=== PATIENT | male | born 1950 | race Caucasian/White ===

== ENCOUNTER 2016-07-30 13:21 | Emergency (ER) | payer MEDICARE, OTHER ==
--- NOTE | 2016-07-30 14:02 | ERPHSYRPT ---
- History of Present Illness Time Seen by Provider: 07/30/16 13:47 Source: patient Exam Limitations: no limitations Patient Subjective Stated Complaint: pt states he began having numbness to left arm on 07/27/16. states he started on lisinopril 10mg on 07/28/16 from 's office. pt denies any pain at this time. Triage Nursing Assessment: pt pink, warm, dry. hand beef ribber equal and strong. radial pulses strong. pt ambulated into er without difficulty. Physician History: The patient is a 66-year-old male with his complaining of left upper arm tingling for several weeks. 3 days ago the patient went for brisk walk with his and was concerned because he was out of breath and has chest discomfort during the walk. The chest discomfort is no longer present that the patient talked to his son who convinced him to come to the emergency room for a workup. His left upper arm is an intermittent pain that sometimes is positional with his arm. His past medical history is significant for high blood pressure, anxiety, and GERD. He's had numerous musculoskeletal surgeries. He has no past medical history of heart problems. He did smoke for many years. Timing/Duration: week(s) (several), intermittent Severity: mild Character of Deficits: LLE (tingling) Deficits: no difficulties Baseline/Normal Cognition: alert oriented x 3 Current Cognition: alert oriented x 3 Baseline Gait: walks w/o assistance Associated Symptoms: denies symptoms Allergies/Adverse Reactions: iodine Allergy (Mild, Verified 07/30/16 13:31) Rash itchiness Home Medications: Lisinopril 10 mg [Zestril 10 MG] 10 mg PO DAILY 07/30/16 [History] Pantoprazole Sodium [Protonix] 40 mg PO DAILY 07/30/16 [History] Hx Tetanus, Diphtheria Vaccination/Date Given: Yes (unknown) Hx Influenza Vaccination/Date Given: Yes Hx Pneumococcal Vaccination/Date Given: No Immunizations Up to Date: Yes - Review of Systems Constitutional: No Fever, No Chills Eyes: No Symptoms Ears, Nose, & Throat: No Symptoms Respiratory: No Cough, No Dyspnea Cardiac: No Chest Pain, No Edema, No Syncope Abdominal/Gastrointestinal: No Abdominal Pain, No Nausea, No Vomiting, No Diarrhea Genitourinary Symptoms: No Dysuria Musculoskeletal: No Back Pain, No Neck Pain Skin: No Rash Neurological: Other (tingling) Psychological: No Symptoms Endocrine: No Symptoms Hematologic/Lymphatic: No Symptoms Immunological/Allergic: No Symptoms All Other Systems: Reviewed and Negative - Past Medical History Pertinent Past Medical History: Yes Neurological History: No Pertinent History ENT History: Cataracts Cardiac History: Hypertension Respiratory History: No Pertinent History Endocrine Medical History: No Pertinent History Musculoskeletal History: No Pertinent History GI Medical History: GERD History: Other Psycho-Social History: Anxiety Other Medical History: viral encephalitis 1992 - Past Surgical History Past Surgical History: Yes Neuro Surgical History: No Pertinent History Cardiac: No Pertinent History Respiratory: No Pertinent History Musculoskeletal: Joint Replacement, Orthopedic Surgery Other Surgical History: kari knee replacement -cataract removed and lens replacement - kidney stones, carpal tunnel kari. - Social History Smoking Status: Former smoker Exposure to second hand smoke: No Drug Use: none Patient Lives Alone: No - Nursing Vital Signs Nursing Vital Signs: Initial Vital Signs Temperature 97.9 F Temperature Source Oral Pulse Rate 69 Respiratory Rate 18 Blood Pressure [] 182/92 Pain Intensity 0 - Kyle Coma Scale Best Eye Response ([place]): (4) open spontaneously Best Verbal Response ([place]): (5) oriented Best Motor Response ([place]): (6) obeys commands [place] Total: 15 - Physical Exam General Appearance: no apparent distress, alert Eye Exam: bilateral eye: normal inspection Ears, Nose, Throat Exam: normal ENT inspection, moist mucous membranes Neck Exam: normal inspection, non-tender, supple Respiratory: normal breath sounds, lungs clear, airway intact, No respiratory distress Cardiovascular: regular rate/rhythm, No edema Gastrointestinal: soft, No tenderness, No distention Rectal Exam: not done Back Exam: normal inspection Extremity Exam: normal inspection, No pedal edema Mental Status: 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 Care 07/30/16 13:33 Active EKG-ER Only STAT Care 07/30/16 13:32 Active CERVICAL SPINE MINIMUM 4 VIEWS Stat Exams 07/30/16 14:10 Taken CHEST 2 VIEWS (PA AND LAT) Stat Exams 07/30/16 14:09 Taken CBC W DIFF Stat Lab 07/30/16 14:00 Completed CMP Stat Lab 07/30/16 14:00 Completed TROPONIN Stat Lab 07/30/16 14:00 Completed Lab/Rad Data: Laboratory Result Diagrams 07/30/16 14:00 07/30/16 14:00 Laboratory Results 07/30/16 07/30/16 Range/Units 14:00 14:00 WBC 7.2 (4.0-10.5) K/mm3 RBC 5.78 H (4.1-5.6) M/mm3 Hgb 16.4 (12.5-18.0) gm/dl Hct 48.1 (42-50) % MCV 83.2 (78-100) fl MCH 28.3 (26-32) pg MCHC 34.1 (32-36) g/dl RDW 13.6 (11.5-14.0) % Plt Count 264 (150-450) K/mm3 MPV 10.4 H (6-9.5) fl Gran % 56.5 (36.0-66.0) % Lymphocytes % 34.9 (24.0-44.0) % Monocytes % 7.3 (0.0-12.0) % Eosinophils % 1.0 (0.00-5.0) % Basophils % 0.3 (0.0-0.4) % Basophils # 0.02 (0-0.4) Sodium 141 (136-145) mEq/L Potassium 4.0 (3.5-5.1) mEq/L Chloride 105 (98-107) mEq/L Carbon Dioxide 24.3 (21-32) mEq/L Anion Gap 15.4 H (5-15) MEQ/L BUN 17 (9-20) mg/dL Creatinine 1.24 (0.55-1.30) mg/dl Estimated GFR > 60 ML/MIN Glucose 98 (70-110) MG/DL Calcium 9.1 (8.5-10.1) mg/dL Total Bilirubin 0.4 (0.2-1.0) mg/dL AST 25 (15-37) U/L ALT 41 (12-78) U/L Alkaline Phosphatase 87 (46-116) U/L Troponin I < 0.017 (0.000-0.056) ng/ml Serum Total Protein 8.2 (6.4-8.2) gm/dL Albumin 4.0 (3.4-5.0) g/dL - Progress Progress: unchanged Counseled pt/family regarding: lab results, diagnosis, need for follow-up, rad results - Departure Time of Disposition: 14:57 Departure Disposition: Home 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 Follow up on Sunday.
[2016-07-30 14:24] LABS: BASOPHIL % 0.3 % (0.0-0.4); Granulocytes % 56.5 % (36.0-66.0); Lymphocytes % 34.9 % (24.0-44.0); Mean Cell Volume 83.2 fl (78-100); Mean Platelet Volume 10.4 fl (6-9.5); Monocytes % 7.3 % (0.0-12.0); Platelet Count 264 K/mm3 (150-450); Red Blood Count 5.78 M/mm3 (4.1-5.6); Red Cell Distribution Width 13.6 % (11.5-14.0); White Blood Count 7.2 K/mm3 (4.0-10.5)
[2016-07-30 14:27] LABS: Mean Corpuscular Hemoglobin 28.3 pg (26-32)
[2016-07-30 14:35] LABS: ALKALINE PHOSPHATASE 87 U/L (46-116); ANION GAP 15.4 MEQ/L (5-15); BILIRUBIN,TOTAL 0.4 mg/dL (0.2-1.0); BLOOD UREA NITROGEN 17 mg/dL (9-20); CHLORIDE 105 mEq/L (98-107); Carbon Dioxide 24.3 mEq/L (21-32); Glucose 98 MG/DL (70-110); SGOT/AST 25 U/L (15-37); SGPT/ALT 41 U/L (12-78); SODIUM 141 mEq/L (136-145); TROPONIN < 0.017 ng/ml (0.000-0.056); Total Protein 8.2 gm/dL (6.4-8.2)
[2016-07-30 15:05] VITALS: O2SAT 94
[2016-07-30 15:25] VITALS: BP 139/83; PULSE 95
--- NOTE | 2016-07-30 18:02 | XRAY ---
Indication: Chest pain and left arm tingling. Comparison: December 21, 2013. PA/lateral chest again hyperinflated with right mid-upper lung peripheral calcified granuloma. No focal infiltrate, consolidation, or large effusion. Heart and mediastinal structures stable and within normal limits. Bony thorax intact. Impression: Stable nonacute chest with chronic features.
--- NOTE | 2016-07-30 18:02 | XRAY ---
Indication: Left arm tingling. Comparison: None 5 views of the cervical spine demonstrates normal alignment with C4-C6 limbus vertebrae. Disc spaces maintained. C6-T1 degenerative facet arthropathy. No acute fracture, subluxation, or soft tissue abnormalities. Foramina bilaterally patent. Impression: Degenerative changes in a otherwise negative cervical spine.
== END 2016-07-30 15:25 | disposition home or self-care (01) ==
LOC: ED 13:21
DX: G62.9 Polyneuropathy, unspecified (principal); R20.0 Anesthesia of skin; R07.89 Other chest pain
CPT/HCPCS: 36000; 36415; 71020; 72050; 80053; 84484; 85025; 93005; 93041; 99283; 99284

== ENCOUNTER 2017-06-05 14:28 | Emergency (ER) | payer MEDICARE, OTHER ==
[2017-06-05 14:49] VITALS: BP 149/86; PULSE 75; O2SAT 97
[2017-06-05] MEDS ORDERED: TORAdol 30 mg Injection IM ONE (14:49)
[2017-06-05] MEDS ORDERED: TORAdol 30 mg Injection ONE (14:55)
--- NOTE | 2017-06-05 14:55 | ERPHSYRPT ---
- History of Present Illness Time Seen by Provider: 06/05/17 14:52 Source: patient Exam Limitations: no limitations Patient Subjective Stated Complaint: was laying on floor board of car doing some work and felt something pop around posterior lower ribs. now having pain with movement in ribs. Triage Nursing Assessment: ambulated to room holding right flank area. skin w/d , color normal, resp easy. patient yelling out and holding right side when he moves. area very tender to touch. no bruising noted. Physician History: 67-year-old white male arrives with complaint of pain in his right posterior low ribs since just prior to arrival. According to the patient he was working on a car on his side he felt something pop now he has pain in the right lower posterior ribs worse with moving and palpation. Patient has no shortness of breath. Past medical history includes cataracts, high blood pressure, diabetes, GERD, anxiety, viral encephalitis. Past surgical history includes joint replacement, orthopedic surgery, bilateral knee replacement, cataracts removed, lens replacement, kidney stones, bilateral carpal tunnel. Timing/Duration: today (just prior to arrival) Severity: moderate Modifying Factors: Improves With: movement Associated Symptoms: No nausea, No abdominal pain, No shortness of breath, No heartburn, No diaphoresis, No cough, No chills, No chest pain, No loss of appetite, No malaise, No rash, No syncope, No seizure, No weakness Allergies/Adverse Reactions: iodine Allergy (Mild, Verified 06/05/17 14:42) Rash itchiness Home Medications: Sertraline HCl 50 mg [Zoloft 50 mg Tablet] 50 mg PO DAILY 06/05/17 [History] Tamsulosin HCl 0.4 mg [Flomax 0.4 MG] 0.4 mg PO DAILY 06/05/17 [History] Hx Tetanus, Diphtheria Vaccination/Date Given: No (unknown) Hx Influenza Vaccination/Date Given: Yes Hx Pneumococcal Vaccination/Date Given: Yes - Review of Systems Constitutional: No Fever, No Chills Eyes: No Symptoms Ears, Nose, & Throat: No Symptoms Respiratory: No Cough, No Dyspnea Cardiac: No Chest Pain, No Edema, No Syncope Abdominal/Gastrointestinal: No Abdominal Pain, No Nausea, No Vomiting, No Diarrhea Genitourinary Symptoms: No Dysuria Musculoskeletal: Other (pain right posterior lower ribs with movement and palpation) Skin: No Rash Neurological: No Dizziness, No Focal Weakness, No Sensory Changes Psychological: No Symptoms Endocrine: No Symptoms All Other Systems: Reviewed and Negative - Past Medical History Pertinent Past Medical History: Yes Neurological History: No Pertinent History ENT History: Cataracts Cardiac History: Hypertension Respiratory History: No Pertinent History Endocrine Medical History: No Pertinent History Musculoskeletal History: No Pertinent History GI Medical History: GERD History: Other Psycho-Social History: Anxiety Other Medical History: viral encephalitis 1992 - Past Surgical History Past Surgical History: Yes Neuro Surgical History: No Pertinent History Cardiac: No Pertinent History Respiratory: No Pertinent History Musculoskeletal: Joint Replacement, Orthopedic Surgery Other Surgical History: kari knee replacement -cataract removed and lens replacement - kidney stones, carpal tunnel kari. - Social History Smoking Status: Former smoker Exposure to second hand smoke: No Drug Use: none Patient Lives Alone: No - Nursing Vital Signs Nursing Vital Signs: Initial Vital Signs Temperature 97.2 F 06/05/17 14:38 Pulse Rate 75 06/05/17 14:38 Respiratory Rate 19 06/05/17 14:38 Blood Pressure 149/86 06/05/17 14:38 O2 Sat by Pulse Oximetry 97 06/05/17 14:38 Pain Scale Pain Intensity 10 - Physical Exam General Appearance: moderate distress Eye Exam: PERRL/EOMI, eyes nml inspection Ears, Nose, Throat Exam: normal ENT inspection, TMs normal, pharynx normal, moist mucous membranes Neck Exam: normal inspection, non-tender, supple, full range of motion Respiratory Exam: normal breath sounds, lungs clear, No respiratory distress Cardiovascular Exam: regular rate/rhythm, normal heart sounds, normal peripheral pulses Gastrointestinal/Abdomen Exam: soft, normal bowel sounds, No tenderness, No mass Back Exam: other (pain right posterior lower ribs with palpation and movement) Extremity Exam: normal inspection, normal range of motion, pelvis stable Neurologic Exam: alert, oriented x 3, cooperative, normal mood/affect, nml cerebellar function, nml station & gait, sensation nml, No motor deficits Skin Exam: normal color, warm, dry, No rash Lymphatic Exam: No adenopathy SpO2 Interpretation: normal (97%) SpO2: 97 Oxygen Delivery: Room Air - Course Nursing assessment & vital signs reviewed: Yes - Radiology Exams Chest X-ray Interpretation: Discussed w/ radiologist (stable, non-acute chest with chronic features) Right Ribs X-ray Interpretation: Discussed w/ radiologist (X-ray right ribs no bony, articular, or soft tissue abnormalities) Ordered Tests: Active Orders 24 hr Category Date Time Status CHEST 1 VIEW (PORTABLE) Stat Exams 06/05/17 14:51 Completed RIBS UNILATERAL Stat Exams 06/05/17 15:10 Completed Medication Summary Discontinued Medications Generic Name Dose Route Start Last Admin Trade Name Misti PRN Reason Stop Dose Admin Ketorolac Tromethamine 60 mg 06/05/17 14:49 06/05/17 15:00 Toradol 30 Mg Injection IM 06/05/17 14:50 60 mg STAT ONE Administration Ketorolac Tromethamine Confirm 06/05/17 14:55 Toradol 30 Mg Injection Administered 06/05/17 14:56 Dose 60 mg .ROUTE .STK-MED ONE - Progress Progress: improved Progress Note: 06/05/17 15:35 67-year-old white male arrives with complaint of pain overlying the right posterior lower ribs which began when he was laying on his side working on a car he states he thought he felt a pop. He is point tender over the right lower ribs lateral to the vertebral column with palpation and movement. X-ray of the right ribs no fractures, no bony articular or soft tissue abnormalities. X-ray of the chest stable nonacute chest with chronic feature bony thorax is intact. Patient is better but not pain-free after Toradol 60 mg IM. I have offered patient CT he does not want this at this point patient appears to be stable and is definitely point tender over the lower ribs. I offered patient [place] he states he has this at home. I offered to write a prescription for nonsteroidals patient states he will get these at home. Will discharge patient. - Departure Time of Disposition: 15:37 Departure Disposition: Home Clinical Impression: Rib pain on right side, Musculoskeletal strain Back pain Qualifiers: Back pain location: thoracic back pain Chronicity: acute Back pain laterality: right Qualified Code(s): M54.6 - Pain in thoracic spine Condition: Fair Critical Care Time: No Additional Instructions: Return home. Cold packs to area 24-48 hours. [place] as prescribed by your family doctor. Advil 2-3 tablets orally every 6 hours with food as needed for pain for up to 5 days. Follow-up with your family doctor if symptoms are worse, no better in 48 hours, or persist longer than one week. Return for acute distress or for severe symptoms. Avoid repetitive or strenuous bending twisting lifting pushing or pulling.
--- NOTE | 2017-06-05 15:15 | XRAY ---
Indication: Right lower rib pain following injury. Comparison: July 30, 2016. Portable chest again hyperinflated and clear with incidental right upper lung calcified granuloma. Heart is not enlarged. Bony thorax intact. Impression: Stable nonacute chest with chronic feature.
--- NOTE | 2017-06-05 15:17 | XRAY ---
Indication: Right lower rib pain following injury. Comparison: None 2 views of the right ribs obtained. No bony, articular, or soft tissue abnormalities.
== END 2017-06-05 16:02 | disposition home or self-care (01) ==
LOC: ED 14:28
DX: R07.81 Pleurodynia (principal); M54.6 Pain in thoracic spine; I10 Essential (primary) hypertension; K21.9 Gastro-esophageal reflux disease without esophagitis; F41.9 Anxiety disorder, unspecified; E11.9 Type 2 diabetes mellitus without complications; S29.011A Strain of muscle and tendon of front wall of thorax, initial encounter
CPT/HCPCS: 71045; 71100; 96372; 99284; J1885

== ENCOUNTER 2022-08-22 08:56 | Day surgery (SDC) | payer MEDICARE, OTHER ==
[2022-08-22] MEDS ORDERED: Epinephrine Preservative Free 1 MG/ML IJ ONE (08:57)
[2022-08-22] MEDS ORDERED: ACETAZOLAMIDE 250 MG TABLET PO ONE (09:00)
[2022-08-22] MEDS ORDERED: BETADINE 5% OPHTHALMIC 30 ML OP ONE (09:00)
[2022-08-22] MEDS ORDERED: cefUROXime sodium 0.005 GM in Sodium Chloride Flush 30 ML*** 0.5 ML IJ ONE (09:00)
[2022-08-22] MEDS ORDERED: Lactated Ringers 1,000 ML IV SCH (09:00)
[2022-08-22] MEDS ORDERED: Ak-Dilate OPHTHALMIC*** 1.065 ML, Cyclogyl 1% OPHTH SOL 1.065 ML, GATIFLOXACIN 0.5% OPH... OP ONE ×4 (09:00)
[2022-08-22] MEDS ORDERED: NON-FORMULARY ITEM OP ONE (09:00)
[2022-08-22] MEDS ORDERED: TETRACAINE 0.5% STERI-UNIT SOL OP ONE ×2 (09:00)
[2022-08-22] MEDS ORDERED: Zofran 4 MG/2 ML VIAL IV PRN (09:00)
[2022-08-22] MEDS ORDERED: Lactated Ringers 1,000 ML IV ONE (09:38)
[2022-08-22] MEDS ORDERED: DIPRIVAN 200 MG/20 ML IV ONE (10:27)
[2022-08-22] MEDS ORDERED: Xylocaine-Mpf 2% 5 Ml Vial ONE (10:27)
[2022-08-22 11:22] VITALS: BP 132/79; PULSE 58; O2SAT 93
== END 2022-08-22 11:28 | disposition home or self-care (01) ==
LOC: SDC 08:56
PROVIDERS: ATTEND Ophthalmology
DX: H25.812 Combined forms of age-related cataract, left eye (principal)
CPT/HCPCS: 99100; C1780; J0171; J2704; A9270-GY

== ENCOUNTER 2024-09-18 22:45 | Observation (INO) | payer MEDICARE, OTHER ==
[2024-09-18] MEDS ORDERED: DUONEB 0.5-3 MG/3 ml Neb IH ONE (23:11)
[2024-09-18] MEDS: DUONEB 0.5-3 MG/3 ml Neb IH ONE (23:20)
[2024-09-18 23:22] LABS: Absolute Neutrophil Ct (ANC) 4.88 x10^3/uL (1.78-5.38); BASOPHIL % 0.4 % (0.2-1.2); Basophil (Absolute #) 0.03 x10^3/uL (0.01-0.08); Eosinophil % 1.9 % (0.8-7.0); Eosinophil (Absolute #) 0.15 x10^3/uL (0.04-0.54); Hematocrit 44.1 % (40.1-51.0); Hemoglobin 14.9 g/dL (13.7-17.5); IMMATURE GRAN # 0.03 x10^3u/L (0.001-0.031); IMMATURE GRAN % 0.4 % (0.001-0.429); Lymphocyte (Absolute #) 2.12 x10^3/uL (1.32-3.57); Lymphocytes % 26.8 % (21.8-53.1); Mean Cell Volume 84.8 fL (79.0-92.2); Mean Corpuscular Hemoglobin 28.7 pg (25.7-32.2); Mean Corpuscular Hgb Concent. 33.8 g/dL (32.3-36.5); Mean Platelet Volume 9.6 fL (9.4-12.4); Monocyte (Absolute #) 0.71 x10^3/uL (0.30-0.82); Neutrophil % 61.5 % (34.0-67.9); Platelet Count 236 x10^3/uL (163-337); Red Cell Distribution Width 12.8 % (11.6-14.4); White Blood Count 7.9 x10^3/uL (4.23-9.07)
[2024-09-18] MEDS ORDERED: MORPHINE SULFATE 4 MG INJ ONE (23:28)
[2024-09-18] MEDS ORDERED: Zofran 4 MG/2 ML VIAL ONE (23:28)
[2024-09-18] MEDS: Zofran 4 MG/2 ML VIAL IV ONE (23:30)
[2024-09-18] MEDS: MORPHINE SULFATE 4 MG INJ IV ONE (23:30)
[2024-09-18 23:43] LABS: ALBUMIN 4.3 g/dL (3.5-5.0); BILIRUBIN,TOTAL 0.7 mg/dL (0.2-1.3); Calcium 8.6 mg/dL (8.4-10.2); Creatinine 1 0.92 mg/dL (0.66-1.25); EST GLOMERULAR FILTRATION RATE 86.2 ML/MIN; MAGNESIUM 2.2 mg/dL (1.6-2.3); Potassium 4.5 mmol/L (3.5-5.1)
[2024-09-18 23:47] LABS: NT PRO BNPII 224 pg/mL (<300); TROPONIN < 0.012 ng/mL (0.000-0.033)
--- NOTE | 2024-09-19 00:46 | XRAY ---
CLINICAL HISTORY: sob/cp COMPARISON: Compared to the prior chest x-ray dated 03/05/2020. TECHNIQUE: X-ray of the chest was performed in AP (anteroposterior) view. FINDINGS: Lungs: Right middle lung zone nodule. No pulmonary consolidations or collapse. No evidence of pleural effusion or thickenings. Heart: Normal cardiac size and shape. No abnormal mediastinal lesions. Bone: Normal bony framework with no significant chest abnormalities. Bilateral shoulder bony hypertrophy. Soft tissue: No abnormal soft tissue masses. IMPRESSION: - Stable right upper lung lobe nodule. - Prior chest x-ray shows mild hyperinflation. - No acute pulmonary abnormalities. Electronically Signed by: Rebel Andersen MD. (09/19/2024 00:41:43 EDT)
--- NOTE | 2024-09-19 00:59 | ERPHSYRPT ---
- History of Present Illness Time Seen by Provider: 09/18/24 22:59 Source: patient Exam Limitations: no limitations Patient Subjective Stated Complaint: Pain to rt breast area, worse when moving and taking a deep breath Triage Nursing Assessment: Pt ambulated into ER without diff. Pt c/o pain at the right breast area since Sunday that has gotten worse this evening, especially when trying to get out of a chair. Pt states, "It feels like pleursiy". Pt has a hard time taking a deep breath due to pain. 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 Lungs clear ant bilat. Pt has a prod cough but informed me that he always does. Physician History: 74 years old male with history of hypertension, hyperlipidemia presented in the ER with complaint of right sided chest pain off and on for the last 2 days with progressive worsening. Patient reports shortness of breath and hurts to take a deep breath. Minimal to no cough. Pain is also exacerbated with movements and palpation on the right side and mild in the substernal area. Patient rates 8/10 intensity sharp pain. Denies any history of coronary artery disease. No fever or chills reported. Allergies/Adverse Reactions: iodine Allergy (Mild, Verified 09/18/24 23:08) Rash itchiness Home Medications: Simvastatin 10 mg PO HS 08/22/22 [History] Loratadine 10 mg [Claritin 10 mg] 10 mg PO DAILY 09/18/24 [History] Sertraline HCl 50 mg [Zoloft 50 mg Tablet] 50 mg PO HS 09/18/24 [History] carvediloL [Coreg] 6.25 mg PO BID 09/18/24 [History] Hx Tetanus, Diphtheria Vaccination/Date Given: No Hx Influenza Vaccination/Date Given: Yes Hx Pneumococcal Vaccination/Date Given: Yes Travel Risk - International Travel Have you traveled outside of the country in past 3 weeks: No - Emerging Infectious Disease Are you exhibiting symptoms associated with any current EIDs: Yes Symptoms: Shortness of Breath - Review of Systems Constitutional: No Symptoms Eyes: No Symptoms Ears, Nose, & Throat: No Symptoms Respiratory: Dyspnea Cardiac: Chest Pain Abdominal/Gastrointestinal: No Symptoms Genitourinary Symptoms: No Symptoms Musculoskeletal: No Symptoms Skin: No Symptoms Neurological: No Symptoms Endocrine: No Symptoms Hematologic/Lymphatic: No Symptoms - Past Medical History Pertinent Past Medical History: Yes Neurological History: No Pertinent History ENT History: Cataracts Cardiac History: Hypertension Respiratory History: No Pertinent History Endocrine Medical History: No Pertinent History Musculoskeletal History: No Pertinent History GI Medical History: GERD History: Other Psycho-Social History: Anxiety Other Medical History: viral encephalitis 1992 - Past Surgical History Past Surgical History: Yes Neuro Surgical History: No Pertinent History Cardiac: No Pertinent History Respiratory: No Pertinent History Gastrointestinal: Hernia Repair Musculoskeletal: Joint Replacement, Orthopedic Surgery Other Surgical History: kari knee replacement -cataract removed and lens replacement - kidney stones, carpal tunnel kari. - Social History Smoking Status: Former smoker Exposure to second hand smoke: No Drug Use: none - Social Determinants of Health Do you worry about a steady place to live?: No Do you have any problems with any of the following?: No known problems In the past 12 months,have you had to go without utilities?: No Transportation Issues: No Has anyone in your support network made you feel unsafe?: No Have you or anyone in your house had to go w/o enough food: No - Nursing Vital Signs Nursing Vital Signs: Initial Vital Signs Temperature 98.0 F 09/18/24 22:51 Pulse Rate 62 09/18/24 22:51 Respiratory Rate 18 09/18/24 22:51 Blood Pressure 150/86 09/18/24 22:51 O2 Sat by Pulse Oximetry 94 L 09/18/24 22:51 Pain Scale Pain Intensity 0 - Physical Exam General Appearance: no apparent distress Eye Exam: PERRL/EOMI Ears, Nose, Throat Exam: hearing grossly normal Neck Exam: normal inspection, non-tender, supple, full range of motion Respiratory Exam: diminished breath sounds, No respiratory distress Cardiovascular/Chest Exam: normal heart sounds, regular rate/rhythm Abdominal/Gastrointestinal Exam: soft, normal bowel sounds, No tenderness Extremity Exam: non-tender, normal range of motion Neurologic Exam: alert, oriented x 3, cooperative, 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 tested Skin Exam: normal color SpO2 Interpretation: normal SpO2: 94 O2 Delivery: Room Air - Course EKG Interpreted by Me: RATE (62), Sinus Rhythm, NORMAL AXIS, NORMAL INTERVALS, Non-specific ST Changes Ordered Tests: Medication Summary Discontinued Medications Generic Name Dose Route Start Last Admin Trade Name Misti PRN Reason Stop Dose Admin Acetaminophen 325 mg 09/19/24 01:59 Acetaminophen 325 Mg Tablet PO 10/19/24 01:58 Q4H PRN PRN PAIN, FEVER, HEADACHE Hydrocodone Bitart/Acetaminophen 1 tab 09/19/24 11:35 Hydrocodone/Apap 5/325 1 Tab Tablet PO 09/24/24 11:34 Q4H PRN PRN PAIN Albuterol/Ipratropium 3 ml 09/18/24 22:59 09/18/24 23:20 Ipratropium/Albuterol Sulfate 3 Ml Ampul.Neb 09/18/24 23:00 3 ml STAT ONE Administration Albuterol/Ipratropium Confirm 09/18/24 23:11 Ipratropium/Albuterol Sulfate 3 Ml Ampul.Neb Administered 09/18/24 23:12 Dose 3 ml IH .STK-MED ONE Albuterol/Ipratropium 3 ml 09/19/24 07:00 09/20/24 07:13 Ipratropium/Albuterol Sulfate 3 Ml Ampul.Neb 10/19/24 06:59 3 ml Q6HRT STACY Administration Carvedilol 6.25 mg 09/19/24 10:00 09/20/24 09:36 Carvedilol 6.25 Mg Tablet PO 10/19/24 09:59 6.25 mg BID STACY Administration Methylprednisolone Sodium 0 mg 09/19/24 10:00 09/20/24 09:36 Succinate 40 mg/ Sterile Water IV 10/19/24 09:59 40 mg 1 ml Q12HT STACY Administration Diphenhydramine HCl 50 mg 09/19/24 13:30 09/19/24 12:45 Diphenhydramine Hcl 50 Mg/Ml Vial IV 09/19/24 13:31 50 mg ONCE ONE Administration Enoxaparin Sodium 40 mg 09/19/24 10:00 09/20/24 09:44 Enoxaparin Sodium 40 Mg/0.4 Ml Syringe SQ 10/19/24 09:59 Not Given DAILY STACY Hydromorphone HCl 0.5 mg 09/19/24 11:35 Hydromorphone 1 Mg/1ml Inj IV 09/24/24 11:34 Q4H PRN PRN SEVERE PAIN Ceftriaxone Sodium 1 gm in 100 mls @ 200 mls/hr 09/19/24 16:15 09/20/24 09:36 Rocephin 1 Gm / 100 Ml Nacl IV 10/19/24 16:14 200 mls/hr Q24H10 STACY Administration Azithromycin 500 mg/ Sodium 250 mls @ 250 mls/hr 09/19/24 16:15 09/20/24 09:49 Chloride IV 10/19/24 16:14 250 mls/hr Q24H10 STACY Administration Ketorolac Tromethamine 30 mg 09/19/24 08:56 09/19/24 22:01 Ketorolac Tromethamine 30 Mg/Ml Inj IV 30 mg Q6H PRN PRN Administration PAIN Loratadine 10 mg 09/19/24 10:00 09/20/24 09:36 Loratadine 10 Mg Tablet PO 10/19/24 09:59 10 mg DAILY STACY Administration Morphine Sulfate 4 mg 09/18/24 23:00 09/18/24 23:30 Morphine Sulfate 4 Mg/Ml Injection IV 09/18/24 23:01 4 mg STAT ONE Administration Morphine Sulfate Confirm 09/18/24 23:28 Morphine Sulfate 4 Mg/Ml Injection Administered 09/18/24 23:29 Dose 4 mg .ROUTE .STK-MED ONE Morphine Sulfate 2 mg 09/19/24 02:02 09/19/24 05:42 Morphine Sulfate 2 Mg/Ml Inj IV 09/24/24 02:01 2 mg Q4H PRN PRN Administration SEVERE PAIN Ondansetron HCl 4 mg 09/18/24 23:00 09/18/24 23:30 Ondansetron Hcl 4 Mg/2 Ml Vial IV 09/18/24 23:01 4 mg STAT ONE Administration Ondansetron HCl Confirm 09/18/24 23:28 Ondansetron Hcl 4 Mg/2 Ml Vial Administered 09/18/24 23:29 Dose 4 mg .ROUTE .STK-MED ONE Ondansetron HCl 4 mg 09/19/24 01:59 Ondansetron Hcl 4 Mg/2 Ml Vial IV 10/19/24 01:58 Q6H PRN PRN NAUSEA/VOMITING Pantoprazole Sodium 40 mg 09/19/24 10:00 09/20/24 09:36 Protonix (Pantoprazole) 40 Mg Tablet PO 05/18/25 09:59 40 mg DAILY STACY Administration Sertraline HCl 50 mg 09/19/24 10:00 09/20/24 09:36 Sertraline Hcl 50 Mg Tab PO 10/19/24 09:59 50 mg DAILY STACY Administration Simvastatin 10 mg 09/19/24 22:00 09/19/24 22:00 Simvastatin 10 Mg Tablet PO 10/19/24 21:59 10 mg HS STACY Administration Lab/Rad Data: Laboratory Result Diagrams 09/18/24 23:15 09/18/24 23:15 Laboratory Results 09/19/24 09/18/24 09/18/24 Range/Units 00:00 23:25 23:15 WBC (4.23-9.07) x10^3/uL RBC (4.63-6.08) x10^6/uL Hgb (13.7-17.5) g/dL Hct (40.1-51.0) % MCV (79.0-92.2) fL MCH (25.7-32.2) pg MCHC (32.3-36.5) g/dL RDW (11.6-14.4) % Plt Count (163-337) x10^3/uL MPV (9.4-12.4) fL Gran % (34.0-67.9) % Immature Gran % (Auto) (0.001-0.429) % Nucleat RBC Rel Count (0.00-0.2) % Eos # (Auto) (0.04-0.54) x10^3/uL Immature Gran # (Auto) (0.001-0.031) x10^3u/L Absolute Lymphs (auto) (1.32-3.57) x10^3/uL Absolute Monos (auto) (0.30-0.82) x10^3/uL Absolute Nucleated RBC (0.00-0.012) x10^3u/L Lymphocytes % (21.8-53.1) % Monocytes % (5.3-12.2) % Eosinophils % (0.8-7.0) % Basophils % (0.2-1.2) % Absolute Granulocytes (1.78-5.38) x10^3/uL Basophils # (0.01-0.08) x10^3/uL D-Dimer 0.42 (0.0-0.50) mg/L Sodium (135-145) mmol/L Potassium (3.5-5.1) mmol/L Chloride (98-107) mmol/L Carbon Dioxide (22-30) mmol/L Anion Gap (5-15) MEQ/L BUN (9-20) mg/dL Creatinine (0.66-1.25) mg/dL Estimated GFR ML/MIN Glucose (74-106) mg/dL Lactic Acid 1.0 (0.4-2.0) Calcium (8.4-10.2) mg/dL Magnesium (1.6-2.3) mg/dL Total Bilirubin (0.2-1.3) mg/dL AST (17-59) U/L ALT (0-50) U/L Alkaline Phosphatase (38-126) U/L Troponin I < 0.012 (0.000-0.033) ng/mL NT-Pro-B Natriuret Pep 224 (<300) pg/mL Serum Total Protein (6.3-8.2) g/dL Albumin (3.5-5.0) g/dL 09/18/24 09/18/24 Range/Units 23:15 23:15 WBC 7.9 (4.23-9.07) x10^3/uL RBC 5.20 (4.63-6.08) x10^6/uL Hgb 14.9 (13.7-17.5) g/dL Hct 44.1 (40.1-51.0) % MCV 84.8 (79.0-92.2) fL MCH 28.7 (25.7-32.2) pg MCHC 33.8 (32.3-36.5) g/dL RDW 12.8 (11.6-14.4) % Plt Count 236 (163-337) x10^3/uL MPV 9.6 (9.4-12.4) fL Gran % 61.5 (34.0-67.9) % Immature Gran % (Auto) 0.4 (0.001-0.429) % Nucleat RBC Rel Count 0.0 (0.00-0.2) % Eos # (Auto) 0.15 (0.04-0.54) x10^3/uL Immature Gran # (Auto) 0.03 (0.001-0.031) x10^3u/L Absolute Lymphs (auto) 2.12 (1.32-3.57) x10^3/uL Absolute Monos (auto) 0.71 (0.30-0.82) x10^3/uL Absolute Nucleated RBC 0.00 (0.00-0.012) x10^3u/L Lymphocytes % 26.8 (21.8-53.1) % Monocytes % 9.0 (5.3-12.2) % Eosinophils % 1.9 (0.8-7.0) % Basophils % 0.4 (0.2-1.2) % Absolute Granulocytes 4.88 (1.78-5.38) x10^3/uL Basophils # 0.03 (0.01-0.08) x10^3/uL D-Dimer (0.0-0.50) mg/L Sodium 141 (135-145) mmol/L Potassium 4.5 (3.5-5.1) mmol/L Chloride 105 (98-107) mmol/L Carbon Dioxide 24 (22-30) mmol/L Anion Gap 16.0 H (5-15) MEQ/L BUN 16 (9-20) mg/dL Creatinine 0.92 (0.66-1.25) mg/dL Estimated GFR 86.2 ML/MIN Glucose 125 H (74-106) mg/dL Lactic Acid (0.4-2.0) Calcium 8.6 (8.4-10.2) mg/dL Magnesium 2.2 (1.6-2.3) mg/dL Total Bilirubin 0.70 (0.2-1.3) mg/dL AST 32 (17-59) U/L ALT 40 (0-50) U/L Alkaline Phosphatase 93 (38-126) U/L Troponin I (0.000-0.033) ng/mL NT-Pro-B Natriuret Pep (<300) pg/mL Serum Total Protein 7.0 (6.3-8.2) g/dL Albumin 4.3 (3.5-5.0) g/dL - Progress Progress: improved, re-examined Air Movement: fair Progress Note: 09/19/24 00:58 74 years old is evaluated in the ER for right-sided chest pain with some difficulty breathing and hurts to take a deep breath. EKG showed sinus rhythm with no acute ST elevations. Has negative troponin. D-dimer is negative. Chest x-ray is negative for any acute cardiopulmonary findings reviewed by me followed by official read. Normal white count, unremarkable chemistries. He is given DuoNeb and morphine, reevaluation his pain is remarkably improved. Patient was borderline hypoxic with sats around 89%, placed on 2 L oxygen. Discussed with Dr. Norris and patient is being admitted for observation. Blood Culture(s) Obtained: No Antibiotics given: No Discussed with Dr.: Other (Dr. Norris hospitalist) Will see patient in: hospital (observation) Counseled pt/family regarding: lab results, diagnosis, rad results Medical Desision Making - Independent Historian Additional History obtained from: Spouse - Discussion of managment Care discussed with:: hospitalist Reviewed:: Test results Agreed on:: Treatment plan Will see patient: in hospital - Diagnostic Testing Diagnostic test were ordered, analyzed, and reviewed by me: Yes Radiological Interpretation: Interpreted by me, Reviewed by me, Teleradiologist Report - Risk of complications The pt has a mod risk of morbidity or mortality based on: Need for prescription drug management The pt has a high risk of morbidity or mortality based on: Decision regarding hospitilization or escalation of hosp level of care - Departure Departure Disposition: Observation Clinical Impression: Right-sided chest pain, Dyspnea Condition: Stable Critical Care Time: No
--- NOTE | 2024-09-19 01:55 | PCM.HP ---
History of Present Illness - Chief Complaint Chief Complaint: Right-sided chest pain, dyspnea Date: 09/19/24 History of Present Illness: Mr. FIELD is a 74 year old male with a past medical history significant for hypertension, hyperlipidemia, and ? COPD who had been on an inhaler years ago who presented to the hospital with complaints of substernal chest pain that started a week ago and didn't bother him too much, but has progressed until it became unbearable. 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 No fever/chills. Initial o2 sats were in the low 93-94% range. He was given some morphine with relief of his symptoms. EKG demonstrated no change, first set of cardiac enzymes normal. No recent sick contacts. - Review of Systems Constitutional: No Fever, No Chills Eyes: No Vision Changes Ears, Nose, & Throat: No Sinus Drainage Respiratory: Cough, Short Of Breath Cardiac: Chest Pain, No Edema, No Palpitations Abdominal/Gastrointestinal: No Abdominal Pain, No Nausea, No Vomiting, No Diarrhea Genitourinary Symptoms: No Dysuria, No Frequency, No Hematuria Musculoskeletal: No Arthralgias Skin: No Rash Neurological: No Headache Psychological: No Suicidal Ideations Endocrine: No Polyuria, No Polydipsia Hematologic/Lymphatic: No Blood Clots Medications & Allergies Home Medications: Home Medication List Simvastatin 10 mg PO HS 08/22/22 [History Confirmed 09/18/24] Loratadine 10 mg [Claritin 10 mg] 10 mg PO DAILY 09/18/24 [History Confirmed 09/18/24] Sertraline HCl 50 mg [Zoloft 50 mg Tablet] 1 tab PO HS 09/18/24 [History Confirmed 09/18/24] carvediloL [Coreg] 6.25 mg PO BID 09/18/24 [History Confirmed 09/18/24] Allergies/Adverse Reactions: Allergies Allergy/AdvReac Type Severity Reaction Status Date / Time iodine Allergy Mild Rash Verified 09/18/24 23:08 - Past Medical History Past Medical History: Yes Neurological History: No Pertinent History ENT History: Cataracts Cardiac History: Hypertension Respiratory History: No Pertinent History Endocrine Medical History: No Pertinent History Musculoskelatal History: No Pertinent History GI Medical History: GERD History: Other Pyscho-Social History: Anxiety Comment: viral encephalitis 1992 - Past Surgical History Past Surgical History: Yes Neuro Surgical History: No Pertinent History Cardiac History: No Pertinent History Respiratory Surgery: No Pertinent History GI Surgical History: Hernia Repair Musculskeletal Surgical Hx: Joint Replacement, Orthopedic Surgery Other Surgical History: kari knee replacement -cataract removed and lens replacement - kidney stones, carpal tunnel kari. - Social History Smoking Status: Former smoker Exposure to second hand smoke: No Alcohol: None Drug Use: none - Social Determinants of Health Do you worry about a steady place to live?: No Do you have any problems with any of the following?: No known problems In the past 12 months,have you had to go without utilities?: No Have you or anyone in your house had to go without enough: No Transportation Issues: No Has anyone in your support network made you feel unsafe?: No - Physical Exam Vital Signs: Vital Signs - 24 hr Temp Pulse Resp BP BP Pulse Ox 09/19/24 01:01 94 L 09/19/24 01:00 56 L 18 141/79 94 L 09/19/24 00:30 55 L 11 L 122/73 94 L 09/19/24 00:00 56 L 10 L 122/76 92 L 09/18/24 23:34 59 L 16 97 09/18/24 23:31 57 L 12 141/110 91 L 09/18/24 23:00 61 13 178/90 100 09/18/24 22:54 20 96 09/18/24 22:53 61 16 150/86 94 L 09/18/24 22:51 98.0 F 62 18 150/86 94 L General Appearance: no apparent distress Neurologic Exam: alert, oriented x 3 Ears, Nose, Throat Exam: moist mucous membranes Neck Exam: supple Respiratory Exam: No respiratory distress Cardiovascular Exam: regular rate/rhythm Gastrointestinal/Abdomen Exam: soft Extremity Exam: No pedal edema, No swelling Skin Exam: normal color, No rash Results - Labs Lab/Micro Results: Lab Results-Last 24 Hours 09/18/24 09/18/24 09/18/24 Range/Units 23:15 23:15 23:15 WBC 7.9 (4.23-9.07) x10^3/uL RBC 5.20 (4.63-6.08) x10^6/uL Hgb 14.9 (13.7-17.5) g/dL Hct 44.1 (40.1-51.0) % MCV 84.8 (79.0-92.2) fL MCH 28.7 (25.7-32.2) pg MCHC 33.8 (32.3-36.5) g/dL RDW 12.8 (11.6-14.4) % Plt Count 236 (163-337) x10^3/uL MPV 9.6 (9.4-12.4) fL Gran % 61.5 (34.0-67.9) % Immature Gran % (Auto) 0.4 (0.001-0.429) % Nucleat RBC Rel Count 0.0 (0.00-0.2) % Eos # (Auto) 0.15 (0.04-0.54) x10^3/uL Immature Gran # (Auto) 0.03 (0.001-0.031) x10^3u/L Absolute Lymphs (auto) 2.12 (1.32-3.57) x10^3/uL Absolute Monos (auto) 0.71 (0.30-0.82) x10^3/uL Absolute Nucleated RBC 0.00 (0.00-0.012) x10^3u/L Lymphocytes % 26.8 (21.8-53.1) % Monocytes % 9.0 (5.3-12.2) % Eosinophils % 1.9 (0.8-7.0) % Basophils % 0.4 (0.2-1.2) % Absolute Granulocytes 4.88 (1.78-5.38) x10^3/uL Basophils # 0.03 (0.01-0.08) x10^3/uL D-Dimer (0.0-0.50) mg/L Sodium 141 (135-145) mmol/L Potassium 4.5 (3.5-5.1) mmol/L Chloride 105 (98-107) mmol/L Carbon Dioxide 24 (22-30) mmol/L Anion Gap 16.0 H (5-15) MEQ/L BUN 16 (9-20) mg/dL Creatinine 0.92 (0.66-1.25) mg/dL Estimated GFR 86.2 ML/MIN Glucose 125 H (74-106) mg/dL Lactic Acid (0.4-2.0) Calcium 8.6 (8.4-10.2) mg/dL Magnesium 2.2 (1.6-2.3) mg/dL Total Bilirubin 0.70 (0.2-1.3) mg/dL AST 32 (17-59) U/L ALT 40 (0-50) U/L Alkaline Phosphatase 93 (38-126) U/L Troponin I < 0.012 (0.000-0.033) ng/mL NT-Pro-B Natriuret Pep 224 (<300) pg/mL Serum Total Protein 7.0 (6.3-8.2) g/dL Albumin 4.3 (3.5-5.0) g/dL 09/18/24 09/19/24 Range/Units 23:25 00:00 WBC (4.23-9.07) x10^3/uL RBC (4.63-6.08) x10^6/uL Hgb (13.7-17.5) g/dL Hct (40.1-51.0) % MCV (79.0-92.2) fL MCH (25.7-32.2) pg MCHC (32.3-36.5) g/dL RDW (11.6-14.4) % Plt Count (163-337) x10^3/uL MPV (9.4-12.4) fL Gran % (34.0-67.9) % Immature Gran % (Auto) (0.001-0.429) % Nucleat RBC Rel Count (0.00-0.2) % Eos # (Auto) (0.04-0.54) x10^3/uL Immature Gran # (Auto) (0.001-0.031) x10^3u/L Absolute Lymphs (auto) (1.32-3.57) x10^3/uL Absolute Monos (auto) (0.30-0.82) x10^3/uL Absolute Nucleated RBC (0.00-0.012) x10^3u/L Lymphocytes % (21.8-53.1) % Monocytes % (5.3-12.2) % Eosinophils % (0.8-7.0) % Basophils % (0.2-1.2) % Absolute Granulocytes (1.78-5.38) x10^3/uL Basophils # (0.01-0.08) x10^3/uL D-Dimer 0.42 (0.0-0.50) mg/L Sodium (135-145) mmol/L Potassium (3.5-5.1) mmol/L Chloride (98-107) mmol/L Carbon Dioxide (22-30) mmol/L Anion Gap (5-15) MEQ/L BUN (9-20) mg/dL Creatinine (0.66-1.25) mg/dL Estimated GFR ML/MIN Glucose (74-106) mg/dL Lactic Acid 1.0 (0.4-2.0) Calcium (8.4-10.2) mg/dL Magnesium (1.6-2.3) mg/dL Total Bilirubin (0.2-1.3) mg/dL AST (17-59) U/L ALT (0-50) U/L Alkaline Phosphatase (38-126) U/L Troponin I (0.000-0.033) ng/mL NT-Pro-B Natriuret Pep (<300) pg/mL Serum Total Protein (6.3-8.2) g/dL Albumin (3.5-5.0) g/dL - Radiology Impressions Radiology Exams & Impressions: Radiology Procedures Category Date Time Status CHEST 1 VIEW (PORTABLE) Stat Exams 09/18/24 23:35 Completed - Other Procedures and Tests Respiratory Therapy 09/18/24 23:34 Respiratory Therapy Assessment DAILY Assessment/Plan (1) Dyspnea Current Visit: Yes Status: Acute Assessment & Plan: Shortness of breath likely from COPD exacerbation versus pleurisy 1. Admit to observation status 2. Duonebs, will give trial of steroids, but defer antibiotics 3. Supplemental oxygen 4. DVT/GI prophylaxis 5. Monitor O2 sats Code(s): R06.00 - DYSPNEA, UNSPECIFIED (2) Right-sided chest pain Current Visit: Yes Status: Acute Assessment & Plan: Appears pleuritic in nature, no evidence of cardiac disease 1. Monitor on telemetry 2. Trend troponin 3. Morphine prn for pain control Code(s): R07.9 - CHEST PAIN, UNSPECIFIED (3) Essential (primary) hypertension Current Visit: Yes Status: Acute Assessment & Plan: Blood pressure under reasonable control 1. Continue bp meds 2. Low Na diet 3. Monitor blood pressure readings Code(s): I10 - ESSENTIAL (PRIMARY) HYPERTENSION Telemedicine Encounter - Telemedicine Encounter Telemedicine Encounter: "The entirety of this encounter was performed via Telemedicine" This visit was performed using real-time audio and video connection between my location and thepatients locationwith the assistance of a surrogateat the patients location. Written or verbal consent was obtained from the pat ient/guardian to perform this visit usingsynchronoustelemedicine technology. Any patient questions regarding the telemedicine interaction were answered.
[2024-09-19] MEDS ORDERED: TYLENOL 325 MG PO PRN (01:59)
[2024-09-19] MEDS ORDERED: Zofran 4 MG/2 ML VIAL IV PRN (01:59)
[2024-09-19] MEDS: MORPHINE SULFATE 2 MG INJ IV PRN (02:24)
[2024-09-19] MEDS: DUONEB 0.5-3 MG/3 ml Neb IH SCH (05:33)
[2024-09-19 07:11] LABS: Absolute Neutrophil Ct (ANC) 4.45 x10^3/uL (1.78-5.38); BASOPHIL % 0.4 % (0.2-1.2); Basophil (Absolute #) 0.03 x10^3/uL (0.01-0.08); Eosinophil % 1.8 % (0.8-7.0); Eosinophil (Absolute #) 0.13 x10^3/uL (0.04-0.54); Hematocrit 43.3 % (40.1-51.0); Hemoglobin 14.4 g/dL (13.7-17.5); IMMATURE GRAN # 0.03 x10^3u/L (0.001-0.031); IMMATURE GRAN % 0.4 % (0.001-0.429); Lymphocyte (Absolute #) 1.84 x10^3/uL (1.32-3.57); Lymphocytes % 25.8 % (21.8-53.1); Mean Cell Volume 85.4 fL (79.0-92.2); Mean Corpuscular Hemoglobin 28.4 pg (25.7-32.2); Mean Corpuscular Hgb Concent. 33.3 g/dL (32.3-36.5); Mean Platelet Volume 9.6 fL (9.4-12.4); Monocyte (Absolute #) 0.66 x10^3/uL (0.30-0.82); Monocytes % 9.2 % (5.3-12.2); Neutrophil % 62.4 % (34.0-67.9); Platelet Count 225 x10^3/uL (163-337); Red Blood Count 5.07 x10^6/uL (4.63-6.08); Red Cell Distribution Width 13.1 % (11.6-14.4); White Blood Count 7.1 x10^3/uL (4.23-9.07)
[2024-09-19 07:32] LABS: ALBUMIN 4.1 g/dL (3.5-5.0); ANION GAP 15.5 MEQ/L (5-15); BILIRUBIN,TOTAL 0.8 mg/dL (0.2-1.3); Calcium 8.6 mg/dL (8.4-10.2); Creatinine 1 0.87 mg/dL (0.66-1.25); EST GLOMERULAR FILTRATION RATE 89.4 ML/MIN; Potassium 4.8 mmol/L (3.5-5.1); Total Protein 6.7 g/dL (6.3-8.2)
[2024-09-19 09:00] LABS: INFLUENZA A NEGATIVE (NEGATIVE); INFLUENZA B NEGATIVE (NEGATIVE); RESPIRATORY SYNCTIAL VIRUS NEGATIVE (NEGATIVE); SARS-CoV-2 Xpert Express NEGATIVE (NEGATIVE)
[2024-09-19] MEDS: Coreg PO SCH (10:32)
[2024-09-19] MEDS: CLARITIN 10 MG PO SCH (10:32)
[2024-09-19] MEDS: solu-MEDROL 40 MG, Sterile H2O 10 ml 1 ML IV SCH (10:32)
[2024-09-19] MEDS: ENOXAPARIN SODIUM SQ SCH (10:33)
[2024-09-19] MEDS: ZOLOFT 50 MG TABLET PO SCH (10:33)
[2024-09-19] MEDS: Protonix 40MG Tablet PO SCH (10:33)
[2024-09-19] MEDS: TORAdol 30 mg Injection IV PRN (10:33)
[2024-09-19] MEDS ORDERED: Hydromorphone 1 mg/ml Injection IV PRN (11:35)
[2024-09-19] MEDS ORDERED: NORCO 5/325 MG PO PRN (11:35)
[2024-09-19] MEDS: BENADRYL 50 MG/ML IV ONE (12:45)
--- NOTE | 2024-09-19 15:12 | XRAY ---
CLINICAL HISTORY: R/O PE, R SIDED CHEST PAIN COMPARISON: CR 09/18/2024. TECHNIQUE: Contiguous 3.[address] images of the chest were acquired with administration of intravenous contrast. Coronal and sagittal reconstructions were obtained. 80 cc isovue 370 was administered for post contrast images. One of the following dose reduction techniques were utilized for this exam: Automated exposure control, adjustment of the mA and/or kV according to patient size, and use of iterative reconstruction FINDINGS: Lungs: Diffuse panlobular and centrilobular pulmonary emphysema, with septal thickening. Bilateral lower lobes basal subsegmental collapse versus infiltrates. Right upper lobe posterior segment peripheral nodules measuring 8 mm, show eccentric calcific foci. Another nodule noted at left lingula measuring 9 mm. No pleural effusion or pleural thickening. Mediastinum: Few mediastinal lymph nodes noted. No mediastinal mass or abnormal lymphadenopathy. Normal appearance of the thymus. Hilar Structures: Normal size and configuration, no enlargement. Heart and Great Vessels: Normal heart size and configuration. No pericardial effusion. Normal caliber and course of the thoracic aorta and other great vessels. No significant atherosclerosis or aneurysm. Normal enhancement of the great vessels post-contrast. Pulmonary Arteries: No evidence of pulmonary embolism. Normal size and course of the pulmonary arteries. Esophagus: Normal course and caliber. No masses or dilatation. Bones: No fractures or lytic/sclerotic lesions. Normal bone density and alignment. No evidence of rib fractures. Chest Wall: No masses or soft tissue abnormalities. Upper Abdomen: Visualized portions of the liver show early reflux of contrast nto IVC and hepatic veins. Gallstones also noted. Thyroid: Normal size and morphology. No nodules or masses. IMPRESSION: 1. No evidence of pulmonary embolism. 2. Bilateral moderate pulmonary emphysema with coarse septal thickening. 3. Bilateral lower lobes basal subsegmental collapse versus infiltrates 4. Right upper lobe 8 mm pulmonary nodule and left lingula solid 9 mm nodule. Consider follow up with CT in 3 months for assessing stability according to Fleischner Society 2017 Guidelines. 5. Early reflux of contrast into IVC, may suggest a cardiac problem. 6. Gallbladder stones. Electronically Signed by: Rebel Andersen MD. (09/19/2024 15:07:52 EDT)
[2024-09-19] MEDS: ROCEPHIN 1 GM / 100 ML NaCl 1 GM/100 ML IVPB IV SCH (17:11)
[2024-09-19] MEDS: ZITHROMAX IV*** 500 MG in Sodium Chloride 0.9% 250 ML 250 ML IV SCH (18:21)
[2024-09-19] MEDS: Zocor 10MG PO SCH (22:00)
[2024-09-20 07:02] LABS: Absolute Neutrophil Ct (ANC) 12.97 x10^3/uL (1.78-5.38); BASOPHIL % 0.1 % (0.2-1.2); Basophil (Absolute #) 0.02 x10^3/uL (0.01-0.08); Eosinophil (Absolute #) 0 x10^3/uL (0.04-0.54); Hematocrit 42.6 % (40.1-51.0); Hemoglobin 13.8 g/dL (13.7-17.5); IMMATURE GRAN # 0.05 x10^3u/L (0.001-0.031); IMMATURE GRAN % 0.4 % (0.001-0.429); Lymphocyte (Absolute #) 0.82 x10^3/uL (1.32-3.57); Lymphocytes % 5.8 % (21.8-53.1); Mean Cell Volume 86.9 fL (79.0-92.2); Mean Corpuscular Hemoglobin 28.2 pg (25.7-32.2); Mean Corpuscular Hgb Concent. 32.4 g/dL (32.3-36.5); Mean Platelet Volume 10.3 fL (9.4-12.4); Monocyte (Absolute #) 0.22 x10^3/uL (0.30-0.82); Monocytes % 1.6 % (5.3-12.2); Neutrophil % 92.1 % (34.0-67.9); Platelet Count 230 x10^3/uL (163-337); Red Cell Distribution Width 12.9 % (11.6-14.4); White Blood Count 14.1 x10^3/uL (4.23-9.07)
[2024-09-20 07:16] LABS: ALBUMIN 4.1 g/dL (3.5-5.0); ANION GAP 16.8 MEQ/L (5-15); BILIRUBIN,TOTAL 0.5 mg/dL (0.2-1.3); Calcium 8.5 mg/dL (8.4-10.2); Creatinine 1 1.01 mg/dL (0.66-1.25); EST GLOMERULAR FILTRATION RATE 77.1 ML/MIN; Potassium 4.4 mmol/L (3.5-5.1); Total Protein 6.9 g/dL (6.3-8.2)
--- NOTE | 2024-09-20 10:35 | PCM.DS ---
Discharge Summary Date of Admission: 09/19/24 01:12 Date of Discharge: 09/20/24 Admitting Physician: ALONSO VASQUEZ MD Primary Care Provider: HELLEN CHU Allergies Allergies iodine Allergy (Mild, Verified 09/18/24 23:08) Rash itchiness Hospital Summary - Hospital Course Hospital Course: Mr. 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 Upon admission, initial evaluation revealed no evidence of ACS, with an unremarkable EKG and negative cardiac enzymes. Chest CT showed no pulmonary embolism but did reveal bilateral moderate pulmonary emphysema with coarse septal thickening, as well as bilateral lower lobe subsegmental collapse versus early infiltrates, which was interpreted as likely reflecting a COPD exacerbation, early pneumonia, or pleurisy. Two pulmonary nodules (8 mm in the right upper lobe and 9 mm in the left lingula) were incidentally discovered and will require ongoing surveillance. Additionally, early reflux of contrast into the inferior vena cava was noted, warranting further OP cardiac evaluation. Gallstones were identified incidentally, but no evidence of acute cholecystitis was found. During the hospitalization, the patient's dyspnea improved, and his right-sided chest pain completely resolved. He was managed with bronchodilators (Duonebs), Solumedrol, Ceftriaxone, Azithromycin, and supplemental oxygen. Will dismiss on a course of cefuroxime and steroid. He is advised to follow up with pulmonology for further management of his COPD and surveillance of the lung nodules. He should also follow up with cardiology for outpatient evaluation, including an echocardiogram to assess for potential elevated right-sided heart pressures. A follow-up appointment with his primary care provider is recommended within one week. Respiratory therapy will evaluate his need for home oxygen. The patient is instructed to avoid any strenuous activity until fully recovered. He is also reminded to return to the emergency department if he experiences worsening shortness of breath, chest pain, or any new concerning symptoms. Patient is agreeable to plan and stable for discharge. Discharge Note New Medications: Cefuroxime/medrol dose pack Follow Up: Pulmonology, PCP, Cardiology CT scan in 3 month for surveillance of the lung nodules I spent 35 minutes [id number] with the patient on the day of discharge performing discharge exam, discussing hospital stay and discharge instructions with patient and caregivers, preparation of discharge records, prescriptions & referral forms and addressing any questions/concerns the patient had as documented above. - Vitals & Intake/Output Vital Signs: Vital Signs Temperature 97.1 F 09/20/24 07:25 Pulse Rate 65 09/20/24 07:25 Respiratory Rate 14 09/20/24 07:25 Blood Pressure 115/59 09/20/24 07:25 O2 Sat by Pulse Oximetry 90 L 09/20/24 07:25 Intake & Output: Intake & Output 09/17/24 09/18/24 09/19/24 09/20/24 11:59 11:59 11:59 11:59 Intake Total 1680 1920 Output Total 300 550 Balance 1380 1370 Weight 96.6 kg - Lab Result Diagrams: 09/20/24 05:50 09/20/24 05:50 Lab Results-Last 24 Hrs: Lab Results-Last 24 Hours 09/19/24 09/20/24 09/20/24 Range/Units 17:40 05:50 05:50 WBC 14.1 H (4.23-9.07) x10^3/uL RBC 4.90 (4.63-6.08) x10^6/uL Hgb 13.8 (13.7-17.5) g/dL Hct 42.6 (40.1-51.0) % MCV 86.9 (79.0-92.2) fL MCH 28.2 (25.7-32.2) pg MCHC 32.4 (32.3-36.5) g/dL RDW 12.9 (11.6-14.4) % Plt Count 230 (163-337) x10^3/uL MPV 10.3 (9.4-12.4) fL Gran % 92.1 H (34.0-67.9) % Immature Gran % (Auto) 0.4 (0.001-0.429) % Nucleat RBC Rel Count 0.0 (0.00-0.2) % Eos # (Auto) 0 L (0.04-0.54) x10^3/uL Immature Gran # (Auto) 0.05 H (0.001-0.031) x10^3u/L Absolute Lymphs (auto) 0.82 L (1.32-3.57) x10^3/uL Absolute Monos (auto) 0.22 L (0.30-0.82) x10^3/uL Absolute Nucleated RBC 0.00 (0.00-0.012) x10^3u/L Lymphocytes % 5.8 L (21.8-53.1) % Monocytes % 1.6 L (5.3-12.2) % Eosinophils % 0.0 L (0.8-7.0) % Basophils % 0.1 L (0.2-1.2) % Absolute Granulocytes 12.97 H (1.78-5.38) x10^3/uL Basophils # 0.02 (0.01-0.08) x10^3/uL Sodium 140 (135-145) mmol/L Potassium 4.4 (3.5-5.1) mmol/L Chloride 106 (98-107) mmol/L Carbon Dioxide 22 (22-30) mmol/L Anion Gap 16.8 H (5-15) MEQ/L BUN 21 H (9-20) mg/dL Creatinine 1.01 (0.66-1.25) mg/dL Estimated GFR 77.1 ML/MIN Glucose 151 H (74-106) mg/dL Calcium 8.5 (8.4-10.2) mg/dL Total Bilirubin 0.50 (0.2-1.3) mg/dL AST 27 (17-59) U/L ALT 32 (0-50) U/L Alkaline Phosphatase 63 (38-126) U/L Serum Total Protein 6.9 (6.3-8.2) g/dL Albumin 4.1 (3.5-5.0) g/dL Procalcitonin 0.062 (0.030-0.080) ng/mL - Radiology Exams Ordered Rad Exams-Entire Visit: Radiology Procedures Category Date Time Status CHEST 1 VIEW (PORTABLE) Stat Exams 09/18/24 23:35 Completed CHEST WITH CONTRAST [CT] Stat Exams 09/19/24 10:12 Completed - Procedures and Test Procedures and Tests throughout Hospitalization: Therapy Orders & Screens 09/18/24 23:34 Respiratory Therapy Assessment DAILY Comment: 09/19/24 01:59 Respiratory Therapy Consult ONCE Comment: Reason For Exam: Diagnosis: Right-sided chest pain, dyspnea 09/19/24 05:47 Oxygen Nasal Cannula 2 lpm Comment: Diagnosis: Right-sided chest pain, dyspnea 09/19/24 17:13 Incentive Spirometry UD Comment: Diagnosis: Right-sided chest pain, dyspnea 09/20/24 10:18 Qualify for Home Oxygen TODAY Comment: Diagnosis: Right-sided chest pain, dyspnea Discharge Exam General Appearance: no apparent distress Neurologic Exam: alert, oriented x 3, cooperative Eye Exam: PERRL Ears, Nose, Throat Exam: normal ENT inspection Neck Exam: normal inspection Respiratory Exam: normal breath sounds, lungs clear Cardiovascular Exam: regular rate/rhythm, normal heart sounds Gastrointestinal/Abdomen Exam: soft, normal bowel sounds Male Genitalia Exam: deferred Rectal Exam: deferred Back Exam: normal inspection Extremity Exam: normal inspection Skin Exam: normal color Final Diagnosis/Problem List - Final Discharge Diagnosis/Problem (1) Acute respiratory failure with hypoxia Current Visit: Yes Status: Acute Code(s): J96.01 - ACUTE RESPIRATORY FAILURE WITH HYPOXIA (2) COPD exacerbation Current Visit: Yes Status: Acute Code(s): J44.1 - CHRONIC OBSTRUCTIVE PULMONARY DISEASE W (ACUTE) EXACERBATION (3) Pneumonia Current Visit: Yes Status: Acute Code(s): J18.9 - PNEUMONIA, UNSPECIFIED ORGANISM (4) Pleurisy Current Visit: Yes Status: Acute Code(s): R09.1 - PLEURISY (5) HTN (hypertension) Current Visit: Yes Status: Chronic Code(s): I10 - ESSENTIAL (PRIMARY) HYPERTENSION (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 Code(s): 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 - COALWORKER'S PNEUMOCONIOSIS (7) HLD (hyperlipidemia) Current Visit: Yes Status: Chronic Code(s): E78.5 - HYPERLIPIDEMIA, UNSPECIFIED (8) Rib pain on right side Current Visit: No Status: Resolved Code(s): R07.81 - PLEURODYNIA - Discharge Discharge Date: 09/20/24 Disposition: Home, Self-Care Condition: Stable Prescriptions: New Azithromycin 250 mg PO DAILY 4 Days #4 tablet cefuroxime axetiL [Cefuroxime] 500 mg PO BID 7 Days #14 tablet Methylprednisolone Packet [Medrol Dosepack] 4 mg PO UD #1 packet PANTOPRAZOLE 40 mg Tablet [Protonix 40MG Tablet] 40 mg PO DAILY 30 Days #30 tablet Continue Simvastatin 10 mg PO HS carvediloL [Coreg] 6.25 mg PO BID Sertraline HCl 50 mg [Zoloft 50 mg Tablet] 50 mg PO HS Loratadine 10 mg [Claritin 10 mg] 10 mg PO DAILY Additional Instructions: Please call your family doctor on Sunday for follow up. You will also need follow up with your [facility] teacher Dr. Ferreira. Follow up with: HELLEN CHU [Primary Care Provider, FAMILY PRACTICE]
[2024-09-20 11:20] VITALS: BP 115/57; PULSE 70; RESP 18; TEMP 97.4
[2024-09-21 08:08] VITALS: O2SAT 94
== END 2024-09-20 11:43 | disposition home or self-care (01) ==
LOC: ED 22:45 → MED SURG 09-19 01:12
PROVIDERS: ADMIT Internal Medicine Nephrology; ATTEND Internal Medicine Nephrology
DX: J96.01 Acute respiratory failure with hypoxia (principal); R07.9 Chest pain, unspecified; J44.1 Chronic obstructive pulmonary disease with (acute) exacerbation; J18.9 Pneumonia, unspecified organism; I10 Essential (primary) hypertension; J60 Coalworker's pneumoconiosis; E78.5 Hyperlipidemia, unspecified; R07.81 Pleurodynia; Z79.899 Other long term (current) drug therapy
CPT/HCPCS: 0241U; 36415; 71045; 71260; 80053; 83605; 83735; 83880; 84145; 84484; 85025; 85379; 93005; 93041; 94640; 94760; 96374; 96375; 99285; 93268; J0456; J0696; J1200; J1650; J1885; J2270; J2405; J2919; L0625; Q3014; A9270-GY; G0378